=== PATIENT | male | born 1955 | race Caucasian/White ===

== ENCOUNTER 2017-01-09 10:44 | Inpatient (IN) | payer MEDICARE ==
[2017-01-09 13:30] LABS: Troponin I 0.085 ng/mL (< 0.028)
--- NOTE | 2017-01-09 13:43 | CT ---
CTA OF THE CHEST WITH CONTRAST 01/09/17 COMPARISON: None. HISTORY: Dyspnea. TECHNIQUE: Multiple contiguous axial images were obtained in a CTA of the chest with contrast per pulmonary emb olism protocol. 3D oblique MIP reformats and direct coronal reformats were performed. FINDINGS: The pulmonary arteries are well opacified without filling defects to suggest pulmonary emboli. The h eart is normal in size without focal cardiac abnormality. Calcifications are seen in the coronary ar teries and aorta. No hilar or mediastinal lymphadenopathy are seen. No focal infiltrates or masses are seen in the lungs. No pneumothorax or pleural effusion are seen. The visualized subdiaphragmatic structures are unremarkable. The chest wall soft tissues are unremar kable. IMPRESSION: No evidence of pulmonary thromboembolism. POS: [facility]
--- NOTE | 2017-01-09 14:03 | ULT ---
LEFT LOWER EXTREMITY VENOUS DUPLEX ULTRASOUND INCLUDING COLOR AND SPECTRAL DOPPLER IMAGING 01/09/17 HISTORY: 61-year-old male with left lower leg edema and redness and pain. Exam performed from groin to ankle including visualized greater saphenous, common femoral, superfici al femoral, profunda femoral, popliteal, trifurcation, and posterior tibial vein regions. There is p hasic flow at all levels with normal compressibility and normal augmentation. No intraluminal thromb us. IMPRESSION: No evidence for deep venous thrombosis. POS: DIGNA
[2017-01-09 14:38] VITALS: BMI 40.0
[2017-01-09] MEDS ORDERED: Enoxaparin Sodium 40 MG/0.4 ML SYRINGE SC SCH (14:45)
[2017-01-09] MEDS ORDERED: Acetaminophen 325 MG TAB PO PRN (14:45)
[2017-01-09] MEDS ORDERED: Vancomycin HCl 1.25 GM in Sodium Chloride 0.9% 250 ML 250 ML IVPB SCH (15:00)
[2017-01-09] MEDS ORDERED: AMOXicillin 250 MG CAP PO SCH (15:00)
[2017-01-09 15:29] LABS: Lactic Acid - Sepsis 1.2 mmol/L (0.5-2.2)
[2017-01-09 15:31] LABS: Anion Gap 13 mmol/L (10-20); BUN (Urea Nitrogen) 21 mg/dL (8.4-25.7); Calc. Creatinine Clearance 86 mL/min (70-130); Calcium 9.7 mg/dL (7.8-10.44); Carbon Dioxide 25 mmol/L (23-31); Chloride 104 mmol/L (98-107); Estimated GFR-MDRD 43
[2017-01-09] MEDS ORDERED: ISOVUE-370 76%-LOCM 1 ML ONE (15:55)
[2017-01-09] MEDS ORDERED: traMADol HCl 50 MG TAB PO PRN (18:05)
[2017-01-09] MEDS ORDERED: Sulfameth/Trimethoprim DS 800-160mg TAB PO SCH (21:00)
--- NOTE | 2017-01-10 00:44 | HP-2 ---
LOCATION: [facility] in [place], [place]. COSIGNER: Dr. Boni Aguilar. CODE STATUS: DNR. PRIMARY CARE PHYSICIAN: KENZIE - Dr. Perez. ATTENDING PHYSICIAN: Dr. Boni Aguilar. RESIDENT PHYSICIAN: Dr. Alexei Hudson. HISTORIAN: History provided by patient. CHIEF COMPLAINT: Left leg swelling, redness and mild shortness of breath. HISTORY OF PRESENT ILLNESS: A 61-year-old male with past medical history of prior CVA in 2006 with residual left-sided deficit and persistent left lower extremity edema, hypertension and hyperlipidemia, who presents with 1 day history of increased swelling, erythema and tenderness of the left lower extremity. Per patient, he states that the redness went up to the mid thigh as of this morning, but subsequently subsided to below the left knee. Patient reports chronic swelling in the left lower extremity since he had his stroke in 2006, as well as occasional \\\\"twitches\\\\" of the left lower extremity, but states that the twitching has been occurring more frequently since yesterday. The patient does not directly admit shortness of breath; however, his employee in the room with him mentioned it; he said he has been a little short of breath , but feels that is unchanged from baseline. ER COURSE: In the ER, the patient was given 81 mg of aspirin, 100 mg of Lovenox and 5 mg of Lopressor. PAST MEDICAL HISTORY: Hypertension, hyperlipidemia and CVA in 2006. PAST SURGICAL HISTORY: Right ankle surgery, unknown type; left ankle surgery, unknown type. ALLERGIES: No known drug allergies. MEDICATIONS: 1. Aspirin 81 mg per day. 2. Crestor, unknown dose. 3. Lisinopril 20 mg per day. 4. Lasix 40 mg daily. 5. Potassium, unknown dose. 6. Fenofibrate unknown dose. 7. Vitamin D, unknown dose. FAMILY HISTORY: Paternal history of prostate cancer. Maternal history of diabetes. SOCIAL HISTORY: Nonsmoker. Social drinker. Denies drugs. REVIEW OF SYSTEMS: GENERAL: Patient complains of feeling chilled and a subjective fever of 99 degrees. EYES: Denies vision changes or eye pain. ENT: Denies nasal congestion, rhinorrhea or sore throat. RESPIRATORY: Denies cough, congestion, shortness of breath or exercise intolerance. CARDIOVASCULAR: Denies chest pain, palpitations or orthopnea. Complains of edema. GASTROINTESTINAL: Denies nausea, vomiting, diarrhea, constipation or abdominal pain. GENITOURINARY: Denies incontinence or dysuria. SKIN: Complains of redness over the left lower extremity from ankle to below the left knee. Denies itching. MUSCULOSKELETAL: Complains of pain, tenderness and swelling of left lower extremity. Denies stiffness, arthritis or arthralgias. NEUROLOGIC: Denies weakness, numbness or syncope. PSYCHIATRIC: Denies anxiety or depression. PHYSICAL EXAMINATION: VITAL SIGNS: In the ED, patient's blood pressure is 131/80, pulse is 86, respiratory rate 22, T-max 98.7 and pulse ox 95% on room air. Current weight 125 kilograms. GENERAL: Alert and oriented in no acute distress, well-developed, obese and appropriately interactive. EYES: Pupils are equal, round and reactive to light with accommodation. Extraocular muscles are intact. Conjunctivae within normal limits. ENT: Oropharynx within normal limits. NECK: Supple, without lymphadenopathy, no thyromegaly. CARDIOVASCULAR: Regular rate and rhythm, 2/6 systolic ejection murmur, no gallops. Radial pulses 2+. Pedal pulse 2+. RESPIRATORY: Normal effort, no retractions. Lungs are clear to auscultation bilaterally. SKIN: Warm and dry. No cyanosis. There is an erythema with associated warmth over the left lower extremity extending from the ankle inferior to the left knee. ABDOMEN: Soft and nontender. Normoactive bowel sounds. No masses, distention or organomegaly. EXTREMITIES: No clubbing or cyanosis. 3+ pitting edema on the left lower extremity only. No edema on the right lower extremity. The left lower extremity is tender to palpation. MUSCULOSKELETAL: Structure is within normal limits. Tone within normal limits. A 4/5 strength in the left lower extremity. Normal strength of the right lower extremity. This is unchanged from his baseline and residual deficit from his prior stroke. NEUROLOGIC: Residual weakness of the left lower extremity, otherwise sensation intact. DTRs 2+/4 bilaterally. GCS 15. PSYCHIATRIC: Appropriate. LABORATORY RESULTS: White blood cells 8.8, hemoglobin 16.7, hematocrit 51 and platelets 211. BUN 21 and creatinine 1.57. D-dimer 0.39. First troponin 0.103 , then subsequent troponin 0.09. CK-MB is 2.5. EKG showed a right bundle branch block, but normal sinus rhythm rate 91. X-RAY FINDINGS: Chest x-ray showed no acute cardiothoracic process. IMAGING DATA: Left lower extremity ultrasound venous Doppler showed no DVT and normal study. CTA of the chest showed no evidence of pulmonary embolism and otherwise normal exam. ASSESSMENT AND PLAN: 1. Cellulitis of left lower extremity versus stasis dermatitis. The patient has no white count. He is afebrile; however, we will cover with antibiotics. Admit to telemetry for observation. We will erwin the margins of the erythema and continue to monitor for worsening signs or symptoms of infection. Repeat an a.m. CBC. 2. Hypertension. Resume home medications, heart healthy diet. 3. Hyperlipidemia. Resume home medications. 4. Prophylaxis. Patient will be started on Lovenox 40 mg daily and Protonix p.o. for deep venous thrombosis and gastrointestinal prophylaxis respectively. DISPOSITION AND LENGTH OF THE HOSPITAL STAY: Less than or equal to 1 day. Patient is stable. Symptomatic medications will be provided. History and physical exam as well as management discussed with Dr. Boni Aguilar, who agrees with the above history, physical exam, assessment and plan unless otherwise noted in his addendum. Patient was seen on rounds with Dr. Hudson. I agree with chen portions of history , PE, and plan above with the following addendum. The patient scratched his leg last week and noticed redness, pain and swelling 2 days later. He is otherwise stable. Unfortunately, he had an indeterminate troponin I in outside ED prompting his admission. We do not think the troponins are significant, but will trend them and the ECG. He denies chest pain or shortness of breath. TRAVIS Aguilar MD [facility]
[2017-01-10] MEDS ORDERED: Vancomycin HCl 1 GM in Premix Bag 1 BAG IVPB SCH (03:00)
[2017-01-10 06:09] LABS: #Basophils 0.1 thou/uL (0.0-0.2); #Eosinphils 0.3 thou/uL (0.0-0.7); #Lymphocytes 2.4 thou/uL (1.20-3.40); #Monocytes 1.1 thou/uL (0.11-0.59); #Neutrophils 4.4 thou/uL (1.40-6.50); %Basophils 0.8 % (0.0-1.0); %Eosinophils 3.3 % (0.0-10.0); %Lymphocytes 28.7 % (21.0-51.0); %Monocytes 13.4 % (0.0-10.0); Hematocrit 46.7 % (42.0-52.0); Mean Platelet Volume 6.1 fL (7.4-10.4); Red Blood Cell (RBC) Count 4.95 mill/uL (4.70-6.10); White Blood Cell (WBC) Count 8.2 thou/uL (4.8-10.8)
[2017-01-10 06:31] LABS: Anion Gap 13 mmol/L (10-20); BUN (Urea Nitrogen) 19 mg/dL (8.4-25.7); Calc. Creatinine Clearance 90 mL/min (70-130); Calcium 9.1 mg/dL (7.8-10.44); Carbon Dioxide 24 mmol/L (23-31); Chloride 104 mmol/L (98-107); Estimated GFR-MDRD 44
[2017-01-10 07:30] LABS: Troponin I 0.073 ng/mL (< 0.028)
--- NOTE | 2017-01-10 07:59 | PDOC.FM ---
- Subjective Subjective: No acute events overnight. Pt reports the pain in his leg and the erythema have subsided. Denies CP, SOB, NVDC. - Objective Vital Signs & Weight: Vital Signs (12 hours) Temp Pulse Resp BP Pulse Ox 01/10/17 04:00 98.4 F 90 18 140/86 94 L 01/09/17 20:00 99.3 F 111 H 18 134/86 95 Weight Weight 133.356 kg I&O: 01/09/17 01/10/17 01/11/17 06:59 06:59 06:59 Intake Total 1540 Output Total 980 Balance 560 Result Diagrams: 01/10/17 05:38 01/10/17 05:38 <Alexei Hudson - Last Filed: 01/10/17 07:57> - Objective Vital Signs & Weight: Vital Signs (12 hours) Temp Pulse Resp BP Pulse Ox 01/10/17 09:00 98.0 F 92 18 144/67 H 98 01/10/17 04:00 98.4 F 90 18 140/86 94 L Weight Weight 294 lb I&O: 01/09/17 01/10/17 01/11/17 06:59 06:59 06:59 Intake Total 1540 Output Total 980 Balance 560 Result Diagrams: 01/10/17 05:38 01/10/17 05:38 <Boni Aguilar - Last Filed: 01/10/17 10:34> Phys Exam - Physical Examination Constitutional: NAD HEENT: PERRLA, moist MMs Neck: no nodes, no JVD Respiratory: no wheezing, no rales, no rhonchi, clear to auscultation bilateral Cardiovascular: RRR, no rub 2/6 KELLIE Gastrointestinal: soft, non-tender, no distention, positive bowel sounds Musculoskeletal: no edema, pulses present Neurological: non-focal, normal sensation, moves all 4 limbs Deviation from normal: erythema over LLE, improved from yesterday <Alexei Hudson - Last Filed: 01/10/17 07:57> Dx/Plan (1) Cellulitis of left anterior lower leg Code(s): L03.116 - CELLULITIS OF LEFT LOWER LIMB Status: Acute (2) Elevated troponin I level Code(s): R74.8 - ABNORMAL LEVELS OF OTHER SERUM ENZYMES Status: Acute (3) Hypertension Code(s): I10 - ESSENTIAL (PRIMARY) HYPERTENSION Status: Acute (4) Hyperlipidemia Code(s): E78.5 - HYPERLIPIDEMIA, UNSPECIFIED Status: Acute - Plan Plan: Pt likely can be transitioned to oral abx and f/u op no white count, no fever elevated troponins trending down, consider op stress. Per pt, Pt had recent echo which showed . home meds for HTN, HLD Lovenox and Protonix for dvt/gi ppx <Alexei Hudson - Last Filed: 01/10/17 07:57> Attending Addendum - Attending Addendum I personally evaluated the patient and discussed the management with Dr. Hudson I agree with the History, Examination, Assessment and Plan documented above with any addition or exceptions noted below. Patient seen on rounds. His leg looks much better. He is stable for discharge. Troponins are stable overnight in the low indeterminate range. I think this is his baseline. No evidence of [place]. Home today on Bactrim. <Boni Aguilar - Last Filed: 01/10/17 10:34>
[2017-01-10] MEDS ORDERED: PYRIDOXINE PO SCH (09:00)
[2017-01-10] MEDS ORDERED: Lisinopril 20 MG TAB PO SCH (09:00)
[2017-01-10] MEDS ORDERED: Furosemide 40 MG TAB PO SCH (09:00)
[2017-01-10] MEDS ORDERED: Enoxaparin Sodium 40 MG/0.4 ML SYRINGE SC SCH (09:00)
[2017-01-10] MEDS ORDERED: LEVOMEFOLATE CALCIUM PO SCH (09:00)
[2017-01-10] MEDS ORDERED: CYANOCOBALAMIN PO SCH (09:00)
[2017-01-10] MEDS ORDERED: Sodium Chloride 0.9% 10 ML ONE (09:54)
[2017-01-10 13:41] VITALS: BP 137/65; TEMP 98.2
[2017-01-10] MEDS ORDERED: AMOXicillin 250 MG CAP PO SCH (15:00)
[2017-01-10] MEDS ORDERED: Sulfameth/Trimethoprim DS 800-160mg TAB PO SCH (21:00)
--- NOTE | 2017-01-11 14:14 | DIS-2 ---
DATE OF ADMISSION: 01/09/2017 DATE OF DISCHARGE: 01/10/2017 LOCATION: [facility] in [place], [place]. DATE OF SERVICE: 01/10/2017 COSIGNER: Dr. Boni Aguilar. RESIDENT PHYSICIAN: Dr. Alexei Hudson. ADMITTING ATTENDING: Dr. Boni Aguilar. DISCHARGE ATTENDING: Dr. Boni Aguilar. CONSULTS: None. PROCEDURES: 1. Vascular ultrasound of the left lower extremity done on 01/09/2017 showed no evidence for DVT. 2. CTA done on 01/09/2017 showed no evidence for pulmonary thromboembolism. PRIMARY DIAGNOSIS: Cellulitis. SECONDARY DIAGNOSES: 1. Elevated troponin. 2. Hypertension. 3. Hyperlipidemia. DISCHARGE MEDICATIONS: 1. Amoxicillin 250 mg t.i.d. 2. Bactrim-DS 1 tab p.o. b.i.d. 3. Aspirin 325 mg daily. 4. B12 4000 mcg p.o. daily. 5. Nexium 1 tab p.o. daily. 6. Fenofibrate 1 capsule p.o. daily. 7. Furosemide 40 mg p.o. daily. 8. Lisinopril 20 mg daily. 9. Potassium chloride 20 mEq daily. 10. Rosuvastatin 20 mg daily. DISCONTINUED MEDICATIONS: None. HISTORY OF PRESENT ILLNESS AND HOSPITAL COURSE: The patient is a 61-year-old male with a previous history of a CVA in 2006, which left him with some residual right-sided deficit and chronic left lower extremity edema. He came in with a 1-day history of worsening left lower extremity edema and erythema, which he states was up to his mid thigh, but subsequently subsided to below the left knee. He was transferred to [facility] after being transferred from the [facility] ER for concern of a left lower extremity DVT/PE. Once at [facility], the patient underwent testing to search for possible DVT, which was negative as well as a negative workup for pulmonary embolism. The patient's blood pressure on arrival was 147/80, 137/65 on discharge. The patient's pulse was 95 on arrival and 83 upon discharge. Other vitals, respiratory rate between 18 and 22 breaths per minute, his oxygen saturation was 94% to 98% on room air with the lowest saturation occurring while the patient was asleep. The patient had no chest pain, no shortness of breath. His only complaint was the erythematous, painful and edematous to the left lower extremity. He was admitted and started on IV antibiotics, vancomycin and Zosyn and treated for 1 day on IV and then switched to p.o. Bactrim and amoxicillin on the day of discharge. Throughout the patient's hospital stay, the erythema and edema greatly improved and the patient was switched from IV to p.o. medication upon discharge. Of note, the patient's troponins on arrival were 0.090 at the outside ER and subsequently trended down to 0.085 and 0.073, although he had no EKG changes and no complaints concerning for an ACS. Importantly, the patient's creatinine on arrival was 1.62 and 1.59 upon discharge. His estimated GFR was 43. There is blood cultures were drawn and there is no growth to date. DISPOSITION: The patient left the hospital in stable condition. DISCHARGE INSTRUCTIONS: 1. Location: Home. 2. Diet: Heart healthy. No salt added diet. 3. Activity: As tolerated. 4. Followup: Follow up with the primary care provider within 1 week following discharge. MYRNA
== END 2017-01-10 13:31 | disposition home or self-care (01) | DRG 603 ==
LOC: ERS 10:44 → 2NO 14:04
PROVIDERS: ADMIT Internal Medicine; ATTEND Internal Medicine
DX: L03.116 Cellulitis of left lower limb (principal); N17.9 Acute kidney failure, unspecified; I69.954 Hemiplegia and hemiparesis following unspecified cerebrovascular disease affecting left non-dominant side; I10 Essential (primary) hypertension; E78.5 Hyperlipidemia, unspecified; Z79.82 Long term (current) use of aspirin; I35.0 Nonrheumatic aortic (valve) stenosis; R74.8 Abnormal levels of other serum enzymes
CPT/HCPCS: 36415; 71275; 80048; 83605; 84484; 85025; 87040; 93005; A4216; J1650; J3370; J7050

== ENCOUNTER 2017-05-15 10:11 | Emergency (ER) | payer MEDICARE ==
[2017-05-15 10:40] LABS: #Basophils 0.1 thou/uL (0.0-0.2); #Eosinphils 0.2 thou/uL (0.0-0.7); #Lymphocytes 1.9 thou/uL (1.20-3.40); #Monocytes 0.6 thou/uL (0.11-0.59); %Basophils 1.1 % (0.0-1.0); %Eosinophils 3.3 % (0.0-10.0); %Lymphocytes 27.9 % (21.0-51.0); %Monocytes 8.3 % (0.0-10.0); %Neutrophils 59.4 % (42.0-75.0); Hemoglobin 16.4 g/dL (14.0-18.0); Mean Corpuscular HGB CONC 32.7 g/dL (32.0-36.0); Mean Corpuscular Volume 88.6 fl (80.0-94.0); Mean Platelet Volume 6.3 fL (7.4-10.4); Platelet Count 222 thou/uL (130-400); RBC Distribution Width 16.4 % (11.5-14.5); Red Blood Cell (RBC) Count 5.65 mill/uL (4.70-6.10); White Blood Cell (WBC) Count 6.7 thou/uL (4.8-10.8)
[2017-05-15 11:07] LABS: ALT (SGPT) 42 U/L (8-55); AST (SGOT) 34 U/L (5-34); Alkaline Phosphatase 49 U/L (40-150); Anion Gap 16 mmol/L (10-20); BUN (Urea Nitrogen) 17 mg/dL (8.4-25.7); Bilirubin, Total 0.5 mg/dL (0.2-1.2); Calc. Creatinine Clearance 0 mL/min (70-130); Calcium 9.4 mg/dL (7.8-10.44); Carbon Dioxide 22 mmol/L (23-31); Chloride 105 mmol/L (98-107); Estimated GFR-MDRD 61; Globulin 3.2 g/dL (2.4-3.5); Glucose 125 mg/dL (80-115); Potassium 4.8 mmol/L (3.5-5.1); Protein, Total 7.2 g/dL (5.8-8.1); Sodium 138 mmol/L (136-145); Troponin I Less than 0.010 ng/mL (< 0.028)
[2017-05-15] MEDS ORDERED: Clindamycin/D5W 600 mg/50 ml Premix Bag ONE (11:50)
--- NOTE | 2017-05-15 15:08 | ULT ---
LEFT LOWER EXTREMITY VENOUS DUPLEX ULTRASOUND INCLUDING COLOR AND SPECTRAL DOPPLER IMAGING: HISTORY: Left foot infection for 2 months. Left leg swelling, redness, and pain last week. COMPARISON: 01/09/17. FINDINGS: Exam performed from groin to ankle including visualized greater saphenous, common femoral, superficia l femoral, profunda femoral, popliteal, trifurcation, and posterior tibial vein regions. Exam includ es color and spectral Doppler imaging. There was phasic flow at all levels. Normal compressibility and normal augmentation. No intralumina l thrombus. IMPRESSION: No evidence for deep venous thrombosis. Stable from prior study. POS: [facility]
--- NOTE | 2017-06-24 15:04 | EKG ---
Test Reason : Blood Pressure : / mmHG Vent. Rate : 090 BPM Atrial Rate : 090 BPM P-R Int : 124 ms QRS Dur : 134 ms QT Int : 376 ms P-R-T Axes : 060 -40 -04 degrees QTc Int : 459 ms Normal sinus rhythm Left axis deviation Right bundle branch block Abnormal ECG Confirmed by ERIC LLAMAS ([id number]), deputy editor in chief ERIC MERIDA ([id number] on 06/24/2017 3:03:38 PM Referred By: Confirmed By:ERIC LLAMAS
== END 2017-05-15 12:12 | disposition home or self-care (01) ==
LOC: ERS 10:11
DX: L03.116 Cellulitis of left lower limb (principal); I10 Essential (primary) hypertension; Z86.73 Personal history of transient ischemic attack (TIA), and cerebral infarction without residual deficits
CPT/HCPCS: 80053; 82553; 83880; 84484; 85025; 93005; 96365; J3490

== ENCOUNTER 2017-12-22 16:18 | Inpatient (IN) | payer MEDICARE ==
[2017-12-22 17:34] LABS: #Basophils 0.1 thou/uL (0.0-0.2); #Eosinphils 0.3 thou/uL (0.0-0.7); #Lymphocytes 2.5 thou/uL (1.20-3.40); #Monocytes 0.9 thou/uL (0.11-0.59); #Neutrophils 6.5 thou/uL (1.40-6.50); %Basophils 0.8 % (0.0-1.0); %Eosinophils 2.6 % (0.0-10.0); %Lymphocytes 24.6 % (21.0-51.0); %Monocytes 8.6 % (0.0-10.0); %Neutrophils 63.5 % (42.0-75.0); Hemoglobin 14.3 g/dL (14.0-18.0); Mean Corpuscular HGB CONC 32.3 g/dL (32.0-36.0); Mean Corpuscular Hemoglobin 29.3 pg (27.0-31.0); Mean Corpuscular Volume 90.6 fL (78.0-98.0); Mean Platelet Volume 6.1 fL (7.4-10.4); Platelet Count 338 thou/uL (130-400); RBC Distribution Width 13.2 % (11.5-14.5); Red Blood Cell (RBC) Count 4.89 mill/uL (4.70-6.10); White Blood Cell (WBC) Count 10.3 thou/uL (4.8-10.8)
[2017-12-22 17:36] LABS: Prothrombin Time 13.1 SEC (12.0-14.7)
[2017-12-22 17:37] LABS: PTT 28.8 SEC (22.9-36.1)
[2017-12-22 17:59] LABS: ALT (SGPT) 41 U/L (8-55); AST (SGOT) 45 U/L (5-34); Albumin 4.5 g/dL (3.4-4.8); Alkaline Phosphatase 46 U/L (40-150); Anion Gap 12 mmol/L (10-20); BUN (Urea Nitrogen) 27 mg/dL (8.4-25.7); Bilirubin, Total 0.2 mg/dL (0.2-1.2); CK (CPK) 302 U/L (30-200); Calc. Creatinine Clearance 0 mL/min (70-130); Calcium 9.9 mg/dL (7.8-10.44); Carbon Dioxide 26 mmol/L (23-31); Chloride 98 mmol/L (98-107); Estimated GFR-MDRD 48; Globulin 2.9 g/dL (2.4-3.5); Glucose 172 mg/dL (80-115); Lipase 29 U/L (8-78); Potassium 4.4 mmol/L (3.5-5.1); Protein, Total 7.4 g/dL (5.8-8.1); Sodium 132 mmol/L (136-145)
[2017-12-22 18:22] LABS: CKMB 14.2 ng/mL (0-6.6); Troponin I 2.108 ng/mL (< 0.028)
--- NOTE | 2017-12-22 18:29 | RAD ---
SINGLE VIEW OF THE CHEST: 12/22/17 COMPARISON: 02/19/17 HISTORY: Chest pain. FINDINGS: Single view of the chest shows a normal sized cardiomediastinal silhouette. There is no evidence of c onsolidation, mass, or pleural effusion. The bones are unremarkable. IMPRESSION: No evidence of acute cardiopulmonary disease. POS: [facility]
[2017-12-22] MEDS ORDERED: Enoxaparin Sodium 30 MG/0.3 ML SYRINGE ONE ×2 (19:26→19:27)
[2017-12-22] MEDS ORDERED: Enoxaparin Sodium 100 MG/ML SYRINGE ONE (19:26)
[2017-12-22] MEDS ORDERED: Ondansetron PF 4 MG/2 ML Vial IVP PRN ×2 (20:35→22:33)
[2017-12-22] MEDS ORDERED: Ondansetron ODT 4 MG TAB SL PRN (20:35)
[2017-12-22] MEDS ORDERED: Sodium Chloride 0.9% 1,000 ML IV SCH (20:35)
[2017-12-22 21:27] LABS: Troponin I 2.835 ng/mL (< 0.028)
[2017-12-22 21:37] VITALS: BMI 42.3
[2017-12-22] MEDS ORDERED: Acetaminophen 325 MG TAB PO PRN (22:33)
[2017-12-22] MEDS ORDERED: traMADol HCl 50 MG TAB PO PRN (22:36)
--- NOTE | 2017-12-22 23:13 | PDOC.EVN ---
Event Note - Event Note Event Note: advanced care planning participants: pt, pt's at bedside, pt's bedside nurse dx: NSTEMI Summary Pt presented with a non-POLST signed document that appears to have been created at home which states that it is a request for DNR status. Discussed with patient and his (who would be his medical decision maker if he is unable to make his own) his wishes. At this point in time, he would like to pursue aggressive and curative (if possible) medical treatment. However, if this fails and he has cardiopulmonary arrest, he does not wish to undergo CPR/ intubation as part of the resuscitative process. Pt is ordered a code status of DNR, DNI Greater than 16 min spent
[2017-12-22 23:49] LABS: Troponin I 3.806 ng/mL (< 0.028)
--- NOTE | 2017-12-22 23:57 | HP ---
PRIMARY CARE PHYSICIAN: Bouchra Perez M.D. CHIEF COMPLAINT: Chest pain. HISTORY OF PRESENT ILLNESS: This is a 62-year-old male with a known history of obesity, prior CVA, w ho presents with a chief complaint of truly atypical chest pain. He describes it more of a radiating discomfort from his back down to his bilateral arms. Patient has a known history of chronic back pa in and prior history of cerebrovascular accident with left-sided weakness. Patient states that appro ximately 2 weeks ago, he started having increased fatigability, particularly with exertion also that he had had a change in his back pain that involved radiation down bilateral arms, which is new for mt m. He denies any overt chest discomfort, nausea, vomiting. Endorses shortness of breath with exerti on, better with rest. He also notes that his radiation down bilateral arms. Pain is improved with r est as well. Patient states that he was seen last Wednesday approximately 5 days prior and was told that he might nee d a heart catheterization. At that point in time, patient declined. As his pain and discomfort was not as severe as it is today. However, in the interval time, he has had increased frequency and juana rity of the pain and subsequent presentation to our facility. His is with him at bedside who co ncurs with his history. REVIEW OF SYSTEMS: As per HPI. Constitutional: No recent weight loss or gain easy fatigability as noted above. Cardiovascular: No overt chest pain or chest pressure. Does have a radiating arm pain bilaterally with some radiation to the front. No nausea, no vomiting. Respiratory: Some shortness of breath with episodes of discomfort, otherwise no cough, no congestion. No recent upper respirato ry infection. Gastrointestinal: No nausea, no vomiting, no abdominal pain, no issues with diarrhea or constipation. Genitourinary: No change in urinary frequency, quality, quantity, or odor. Muscul oskeletal: No change in his baseline strength. Denies any new myalgias or arthralgias. PAST MEDICAL AND SURGICAL HISTORY: As per HPI, includes the followin. Hypertension. 2. Hyperlipidemia. 3. CVA in 2006 with subsequent left-sided weakness, aortic stenosis diagnosed approximately 6 months ago, unclear severity by history. 4. Status post right ankle surgery. 5. Status post left ankle surgery. 6. Status post chronic back pain secondary to his CVA. 7. Obesity. HOME MEDICATIONS: Please see the EMR for full details. His current regimen seems to include: 1. Triamterene/hydrochlorothiazide 37.5/25 mg p.o. daily. 2. Fenofibrate 160 mg p.o. daily. 3. Tramadol 100 mg p.o. q.i.d. p.r.n. for pain 4. Rosuvastatin 1 tab p.o. daily. 5. Aspirin 325 mg p.o. daily. 6. Esomeprazole 1 tab p.o. b.i.d. 7. Lisinopril 1 tab p.o. daily. ALLERGIES: No known drug allergies. FAMILY HISTORY: Significant for diabetes and prostate cancer. SOCIAL HISTORY: No tobacco use, no illicit drug use, no alcohol use. Patient is . His is with him at bedside. Patient states he wishes to be a DO NOT RESUSCITATE, DO NOT INTUBATE if aggr essive medical treatment fails. However, he would like to pursue aggressive medical treatment. PHYSICAL EXAMINATION: GENERAL: The patient is awake, alert, conversant, in no acute distress, seated on the commode. HEENT: Normocephalic, atraumatic. Equal ocular motions are intact, moist mucous membranes. CARDIOVASCULAR: S1, S2. Systolic ejection murmur appreciated throughout the left sternal border. N o carotid bruits. EXTREMITIES: Pulses 2+ bilateral upper extremities, 1+ bilateral left lower extremity edema. Trace pitting pedal edema of the right. Patient states that this is his baseline. RESPIRATORY: Reasonable air movement. No wheezes, rales, or rhonchi. Grossly clear to auscultation . ABDOMEN: Large and protuberant. Positive bowel sounds, soft, nontender to palpation. MUSCULOSKELETAL: He is moving his right upper and lower extremity without overt difficulty. LABORATORY DATA AND IMAGING: WBC 10.3, hemoglobin 14.3, hematocrit 44.3, platelets 338. PT 13.1, IN R 1.0. Sodium 132, potassium 4.4, chloride 98, bicarbonate 26, BUN 27, creatinine 1.48, glucose 172, calcium 9.9. Total bilirubin 0.2, AST 45, ALT 41, alkaline phosphatase 46. Creatine kinase 302, tr oponin initial 2.108 followed by 2.835. BNP natriuretic peptide 201.6, total protein 7.4, albumin 4. 5, lipase of 29. ASSESSMENT AND PLAN: A 62-year-old male presenting with atypical chest pain. 1. Atypical chest pain in terms of location and characteristic accompanied by reproducible and exert ional shortness of breath and fatigue. Concern for the cardiac etiology and probable non-ST elevatio n myocardial infarction. Patient has been given Lovenox full anticoagulation dose. I appreciate Car diology consultation. We will trend with serial troponins. Aspirin, lisinopril, rosuvastatin, and c lose monitoring of hemodynamics. To consider addition of the beta teresa if blood pressure is able to tolerate. Patient currently is free from his chest pain equivalent. Maintain on telemetry. Rech matthew EKG in the morning. To consider an echocardiogram if no catheterization is pursued. 2. Known history of aortic stenosis. Patient states that he is told it is "okay and needs only to b e monitored" 3. Hypertension, stable. Continue home regimen and close monitoring as noted above. 4. Hyperlipidemia. Continue the patient on his home rosuvastatin. 5. Question of an aneurysm. Patient states that he was told at some point, he has aneurysm. I disc ussed with the patient that blood pressure control will be chen in helping to manage this along with l ongitudinal followup. Patient and his expressed understanding. 6. Diet: N.p.o. after midnight; otherwise, cardiac diet. 7. Activity: As tolerated. 8. Deep venous thrombosis prophylaxis with sequentials. Patient is already on full dose anticoagula tion with Lovenox. Patient is admitted to the [facility]. Patient is DNR/DNI as discussed above. This was discussed with the patient and his at bedside nursing.
[2017-12-23] MEDS: Nitroglycerin 0.4 MG TAB (25 Tab Bottle) SL PRN ×6 (01:28→23:43)
[2017-12-23 04:17] LABS: Anion Gap 15 mmol/L (10-20); BUN (Urea Nitrogen) 26 mg/dL (8.4-25.7); Calc. Creatinine Clearance 111 mL/min (70-130); Calcium 9.6 mg/dL (7.8-10.44); Carbon Dioxide 23 mmol/L (23-31); Cardiac Risk 5.9 (Less than 4.5); Chloride 101 mmol/L (98-107); Cholesterol 189 mg/dl (< 200 Desired); Estimated GFR-MDRD 55; Glucose 202 mg/dL (80-115); HDL Cholesterol 32 mg/dL (>60 Neg Risk); Potassium 4.3 mmol/L (3.5-5.1); Sodium 135 mmol/L (136-145); Triglycerides 448 mg/dL (Less than 150)
[2017-12-23 04:44] LABS: #Basophils 0.1 thou/uL (0.0-0.2); #Eosinphils 0.3 thou/uL (0.0-0.7); #Lymphocytes 2.2 thou/uL (1.20-3.40); #Monocytes 0.9 thou/uL (0.11-0.59); #Neutrophils 5.5 thou/uL (1.40-6.50); %Eosinophils 3.2 % (0.0-10.0); %Lymphocytes 24.6 % (21.0-51.0); %Monocytes 10.3 % (0.0-10.0); %Neutrophils 60.8 % (42.0-75.0); Hemoglobin 13.3 g/dL (14.0-18.0); Mean Corpuscular HGB CONC 32.8 g/dL (32.0-36.0); Mean Corpuscular Hemoglobin 29.8 pg (27.0-31.0); Mean Corpuscular Volume 90.8 fL (78.0-98.0); Mean Platelet Volume 6.2 fL (7.4-10.4); Platelet Count 310 thou/uL (130-400); RBC Distribution Width 13.1 % (11.5-14.5); Red Blood Cell (RBC) Count 4.46 mill/uL (4.70-6.10); White Blood Cell (WBC) Count 9.1 thou/uL (4.8-10.8)
[2017-12-23] MEDS: Morphine 2 MG/ML SYRINGE SLOW IVP PRN ×8 (05:13→23:20)
[2017-12-23] MEDS ORDERED: Eucerin (Mineral Oil/Petrolatum,White) 30 gm Jar TOP PRN (08:05)
[2017-12-23] MEDS ORDERED: Ondansetron PF 4 MG/2 ML Vial IVP PRN (08:05)
[2017-12-23] MEDS ORDERED: Diabetic Tussin 200 MG/10 ML UDCUP PO PRN (08:05)
[2017-12-23] MEDS ORDERED: Loratadine 10 MG TAB PO PRN (08:05)
[2017-12-23] MEDS ORDERED: Ondansetron ODT 4 MG TAB PO PRN (08:05)
[2017-12-23] MEDS ORDERED: hydrALAZINE 20 MG/ML VIAL SLOW IVP PRN (08:05)
[2017-12-23] MEDS ORDERED: cloNIDine 0.1 MG TAB PO PRN (08:05)
[2017-12-23] MEDS ORDERED: Calcium Carbonate 500 MG ChewTAB PO PRN (08:05)
[2017-12-23] MEDS ORDERED: Zolpidem Tartrate 5 MG TAB PO PRN (08:05)
[2017-12-23] MEDS ORDERED: Bisacodyl 5 MG TAB PO PRN (08:05)
[2017-12-23] MEDS ORDERED: Sodium Chloride 0.65% Nasal 44 ML BOT EA NARE PRN (08:05)
[2017-12-23] MEDS ORDERED: Senokot S 8.6-50 MG TAB PO PRN (08:05)
[2017-12-23] MEDS ORDERED: Acetaminophen 500 MG TAB PO PRN (08:05)
[2017-12-23] MEDS ORDERED: Artificial Tear Sol 15 ML BOT EA EYE PRN (08:05)
[2017-12-23] MEDS ORDERED: Loperamide HCl 2 MG CAP PO PRN (08:05)
[2017-12-23] MEDS ORDERED: Lisinopril 2.5 MG TAB PO SCH (09:00)
--- NOTE | 2017-12-23 09:51 | CON ---
DATE OF CONSULTATION: 12/23/2017 HISTORY OF PRESENT ILLNESS: He is a 62-year-old morbidly obese gentleman who presented to the ER wit h a week and a half history of off and on back pain between the shoulder radiating to both upper extr emities and some vague anterior chest pain, but no shortness of breath, no coughing or wheezing. He has had a CVA many years ago, which has residual left-sided weakness though he does walk with the he lp of a walker. He has gained considerable weight. Presently, he is 135 kilograms. In the ER, his oxygen saturation is 100%, blood pressure was 127/83. His says he has had no ignacio or history of TB, pneumonia or bronchial asthma. PAST MEDICAL HISTORY: 1. CVA, left-sided residual weakness. 2. Hypertension. PAST SURGICAL HISTORY: Both ankles broken. 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 Tonsils, appendix. TOBACCO: Never. ALCOHOL: Occasional. MEDICATIONS: From home, lisinopril, calcium, triamterene, tramadol, Nexium, aspirin. ALLERGIES: None. 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 REVIEW OF SYSTEMS: A 10 point negative. PHYSICAL EXAMINATION: VITAL SIGNS: Sats are 97% on room air, respiration rate 18, temperature 97, blood pressure 120/70. GENERAL: He is morbidly obese. His Mallampati score is 2. CHEST: Decreased breath sounds, no wheezing. CARDIAC: Normal S1, S2, no gallops. ABDOMEN: Soft, no masses. LABORATORY DATA: Creatinine 1.3. Troponin is elevated at 3. BNP is 201 and his white count 9000, H &H is 13 and 40, platelet count 310. X-RAY FINDINGS: X-ray of the chest was normal. IMPRESSION: 1. Chest pain, rule out coronary artery disease. 2. Morbid obesity. 3. Cerebrovascular accident. 4. Probably sleep apnea. 5. Hypertension. 6. Renal failure. PLAN: Await input from Cardiology. Pulmonary will follow while in the MICU. Encouraged to lose jessica ght. Obviously, he has an outpatient sleep study if he has agreed to do so. This is a 70 minutes consultation in which 50% of time spent in direct patient care.
[2017-12-23] MEDS: Lisinopril 20 MG TAB PO SCH (10:02)
[2017-12-23] MEDS: Triamterene/Hydrochlorothiazide 37.5 mg/25 mg Tablet PO SCH (10:04)
[2017-12-23] MEDS: Fenofibrate Nanocrystallized 145 MG TAB PO SCH (10:04)
[2017-12-23] MEDS: Rosuvastatin 20 MG TAB PO SCH (10:04)
[2017-12-23] MEDS: Famotidine/PF 20 mg/2ml Vial SLOW IVP SCH ×2 (10:04→20:22)
[2017-12-23] MEDS: Aspirin 325 MG TAB PO SCH (10:04)
--- NOTE | 2017-12-23 10:54 | PDOC.PN ---
- Subjective Encounter Start Date: 12/23/17 Encounter Start Time: 08:40 -: old records requested/rev Patient seen and examined. No new complaints. No overnight events pt denies chest pain - Objective Resuscitation Status: Resuscitation Status DNR:Do Not Resuscitate MAR Reviewed: Yes Vital Signs & Weight: Vital Signs (12 hours) Temp Pulse Resp BP BP Pulse Ox 12/23/17 10:02 115/80 12/23/17 08:00 97 12/23/17 07:54 97.4 F L 92 18 120/75 97 12/23/17 04:21 97.3 F L 99 15 118/76 94 L 12/23/17 00:18 97.3 F L 101 H 14 121/82 95 Weight Weight 303 lb I&O: 12/22/17 12/23/17 12/24/17 06:59 06:59 06:59 Output Total 300 Balance -300 Result Diagrams: 12/23/17 03:40 12/23/17 03:40 Radiology Reviewed by me: Yes EKG Reviewed by me: Yes (nsr) Phys Exam - Physical Examination Constitutional: NAD HEENT: PERRLA, moist MMs, sclera anicteric Neck: no JVD, supple Respiratory: no wheezing, no rales, no rhonchi Cardiovascular: RRR, no significant murmur, no rub Gastrointestinal: soft, non-tender, no distention, positive bowel sounds morbid obesity Musculoskeletal: no edema, pulses present Neurological: non-focal Lymphatic: no nodes Psychiatric: normal affect, A&O x 3 Skin: no rash, normal turgor Dx/Plan (1) NSTEMI (non-ST elevated myocardial infarction) Code(s): I21.4 - NON-ST ELEVATION (NSTEMI) MYOCARDIAL INFARCTION Status: Acute (2) Morbid obesity with BMI of 40.0-44.9, adult Code(s): E66.01 - MORBID (SEVERE) OBESITY DUE TO EXCESS CALORIES; Z68.41 - BODY MASS INDEX (BMI) 40.0-44.9, ADULT Status: Acute (3) Hyperlipidemia Code(s): E78.5 - HYPERLIPIDEMIA, UNSPECIFIED Status: Acute (4) Hypertension Code(s): I10 - ESSENTIAL (PRIMARY) HYPERTENSION Status: Acute - Plan cont current plan of care, plan discussed w/ family * home medication reconciled * continue asprin, crestor, tricor * cardiology consulted * will get echo today * medication reviewed as below * symptomatic treatment * discussed with . Review of Systems - Review of Systems ENT: negative: Ear Pain, Ear Discharge, Nose Pain, Nose Discharge, Nose Congestion, Mouth Pain, Mouth Swelling, Throat Pain, Throat Swelling, Other Respiratory: negative: Cough, Dry, Shortness of Breath, Hemoptysis, SOB with Excertion, Pleuritic Pain, Sputum, Wheezing Cardiovascular: negative: chest pain, palpitations, orthopnea, paroxysmal nocturnal dyspnea, edema, light headedness, other Gastrointestinal: negative: Nausea, Vomiting, Abdominal Pain, Diarrhea, Constipation, Melena, Hematochezia, Other Genitourinary: negative: Dysuria, Frequency, Incontinence, Hematuria, Retention , Other Musculoskeletal: negative: Neck Pain, Shoulder Pain, Arm Pain, Back Pain, Hand Pain, Leg Pain, Foot Pain, Other Skin: negative: Rash, Lesions, Ze, Bruising, Other - Medications/Allergies Allergies/Adverse Reactions: Allergies Allergy/AdvReac Type Severity Reaction Status Date / Time No Known Allergies Allergy Verified 12/22/17 22:01 Medications: Current Medications Acetaminophen (Tylenol) 650 mg PO Q4H PRN PRN Reason: Headache/Fever/Mild Pain (1-3) Acetaminophen (Tylenol) 500 mg PO Q6H PRN PRN Reason: Mild Pain (1-3) Hydrocodone Bitart/Acetaminophen ([place] 5/325) 1 tab PO Q4H PRN PRN Reason: Moderate Pain (4-6) Artificial Tears (Tears Renewed 15ml Bottle) 2 drop EA EYE PRN PRN PRN Reason: Dry Eyes Aspirin (Aspirin) 325 mg PO DAILY [facility] Last Admin: 12/23/17 10:04 Dose: 325 mg Bisacodyl (Dulcolax) 10 mg PO DAILYPRN PRN PRN Reason: Constipation Calcium Carbonate (Tums) 1,000 mg PO Q4H PRN PRN Reason: Heartburn or Indigestion Clonidine (Catapres) 0.1 mg PO Q4H PRN PRN Reason: SBP > ____ Famotidine (Pepcid) 20 mg SLOW IVP Q12HR [facility] Last Admin: 12/23/17 10:04 Dose: 20 mg Fenofibrate (Tricor) 145 mg PO DAILY [facility] Last Admin: 12/23/17 10:04 Dose: Not Given Guaifenesin (Robitussin Sf) 200 mg PO Q4H PRN PRN Reason: Cough Hydralazine HCl (Apresoline) 10 mg SLOW IVP Q4H PRN PRN Reason: SBP > 180 and HR < 70 Lisinopril (Zestril) 20 mg PO DAILY [facility] Last Admin: 12/23/17 10:02 Dose: 20 mg Loperamide HCl (Imodium) 2 mg PO PRN PRN PRN Reason: Diarrhea/Loose Stools Loratadine (Claritin) 10 mg PO DAILYPRN PRN PRN Reason: Sinus Symptoms Mineral Oil/White Petrolatum (Eucerin Cream) 0 gm TOP BIDPRN PRN PRN Reason: Dry Skin Morphine Sulfate (Morphine) 2 mg SLOW IVP Q5MIN PRN PRN Reason: Chest Pain Last Admin: 12/23/17 05:13 Dose: 2 mg Nitroglycerin (Nitrostat) 0.4 mg SL Q5MIN PRN PRN Reason: Chest Pain Last Admin: 12/23/17 01:33 Dose: 0.4 mg Ondansetron HCl (Zofran) 4 mg IVP Q6H PRN PRN Reason: Nausea/Vomiting Ondansetron HCl (Zofran Odt) 4 mg PO Q6H PRN PRN Reason: Nausea/Vomiting Ondansetron HCl (Zofran) 4 mg IVP Q6H PRN PRN Reason: Nausea/Vomiting Rosuvastatin Calcium (Crestor) 20 mg PO DAILY [facility] Last Admin: 12/23/17 10:04 Dose: 20 mg Senna/Docusate Sodium (Senokot S) 2 tab PO BID PRN PRN Reason: Constipation Sodium Chloride ([place] 0.65%) 0 ml EA NARE QIDPRN PRN PRN Reason: Nasal Congestion Tramadol HCl (Ultram) 100 mg PO QIDPRN PRN PRN Reason: Moderate to Severe Pain (4-10) Triamterene/HCTZ (Maxzide-25) 1 tab PO DAILY [facility] Last Admin: 12/23/17 10:04 Dose: Not Given Zolpidem Tartrate (Ambien) 5 mg PO HSPRN PRN PRN Reason: Insomnia
[2017-12-23] MEDS ORDERED: Verapamil 5 MG/2 ML VIAL ONE (12:59)
[2017-12-23] MEDS ORDERED: Heparin 10,000 UNITS/1 ML VIAL ONE (12:59)
[2017-12-23] MEDS ORDERED: Lidocaine 1% (PF) 30 ML VIAL ONE (12:59)
[2017-12-23] MEDS ORDERED: Nitroglycerin 100MG/250ML BOT 250 ML ONE (12:59)
[2017-12-23] MEDS ORDERED: Midazolam HCl 2 mg/2 ml Vial ONE (13:33)
[2017-12-23] MEDS ORDERED: Fentanyl 100 MCG/2 ML VIAL ONE (13:33)
[2017-12-23] MEDS ORDERED: Aggrastat 12.5 MG/250 ML 250 ML ONE (13:52)
[2017-12-23] MEDS ORDERED: Sodium Chloride 0.9% 1,000 ML IV SCH (14:15)
[2017-12-23] MEDS ORDERED: Iopamidol 370 76% 100 ML VIAL ONE (14:51)
[2017-12-23] MEDS: Aggrastat 12.5 MG/250 ML 250 ML IVPB SCH ×2 (15:01→21:44)
--- NOTE | 2017-12-23 15:35 | CON ---
DATE OF CONSULTATION: 12/23/2017 REASON FOR CONSULTATION: Non-STEMI. HISTORY OF PRESENT ILLNESS: Mr. Gray is a very pleasant 62-year-old white gentleman who comes to [facility] for chest pain. He started having chest pain about a week ago. He was seen in the ER cl ose to his house. I think it is in [place] and he was told that his blood work showed that he was h aving an NC and he had recommendation to come into the hospital. He refused. He stated he was ready to and just decided to go home. He continued to have pain throughout the week. Pain worsened t o a point where he cannot even walk across the [place] and cannot even get out of the bed without having pain and moved onto bed and so decided to come again. He was told one of his friends that he could have a heart catheterization and maybe have a stent placed to get better. Here, his troponins were e levated. Cardiology is being consulted. He is pain free at rest, but any minimal movement causes hi m to have pain. PAST MEDICAL HISTORY: 1. Hypertension. 2. Hyperlipidemia. 3. History of cerebrovascular accident in the past in 2006 with left-sided weakness. 4. History of aortic stenosis of unknown severity. 5. Obesity. PAST SURGICAL HISTORY: 1. Left ankle surgery. 2. Right ankle surgery. OUTPATIENT MEDICATIONS: Include, 1. Triamterene/hydrochlorothiazide 37.5/25 daily. 2. Fenofibrate. 3. Tramadol 100 mg p.r.n. pain. 4. Rosuvastatin. 5. Aspirin 325 a day. 6. Esomeprazole. 7. Lisinopril. ALLERGIES: No known drug allergies. FAMILY HISTORY: Noncontributory. SOCIAL HISTORY: No alcohol, tobacco or drugs. He has DNR/DNI on file. However, he only wants to be DNR/DNI if he is hooked up to the machine for a long period of time and is unable to recover. He do es want to be a vegetable. REVIEW OF SYSTEMS: A 12-point review of systems is done and it is all negative except as stated in [facility] history and physical. PHYSICAL EXAMINATION: VITAL SIGNS: Temperature 97.3, pulse 99, respiratory rate 15, satting 94% on room air, blood pressur e 118/76. GENERAL: Awake, alert, oriented x3, in no distress. HEENT: Normocephalic, atraumatic. NECK: Supple. LUNGS: Clear. CARDIOVASCULAR: S1, S2, no S3, S4. There is a grade 3-6 systolic murmur at right upper sternal bord er. ABDOMEN: Soft, nontender, bowel sounds. Prominent abdomen. EXTREMITIES: 1+ edema. SKIN: Warm and dry. LABORATORY DATA: Laboratory work was reviewed. CBC was reviewed. Coags were reviewed. Chemistries were reviewed. Troponin is 2.1, 2.8 and 3.8. BNP of 201, creatinine of 1.3, GFR 55. Triglycerides of 448, cholesterol total 186, HDL of 32. Lipase was normal. IMAGING DATA: EKG was reviewed. He as a right bundle branch block. He has diffuse ST depression wi th elevation in AVR suggestive of multivessel disease or equivolent. ASSESSMENT AND PLAN: 1. Non-ST elevation myocardial infarction. 2. Hypertension. 3. Obesity. 4. History of cerebrovascular accident. PLAN: 1. Certainly his EKG as his symptoms, as well as his troponin elevation is suggestive of multivessel disease or left main disease. We had a long conversation about possibly doing a heart catheterizati on. He agrees to proceed with a heart catheterization. He does not wish to have bypass surgery. Th is was needed. I told him that most likely this is what I think will be required because of the echo cardiogram, which is being done at exact time that I am in his room and it looks like the LV is reduc ed, we will get a final result for this in a bit. Otherwise, after a long conversation with him and his , he said that he will rescind his DNR for the procedure and for the kolton and postoperative s alvarez, he will make a better decision about surgery once he knows what his anatomy looks like. 2. It also seems like his aortic valve going to be an issue if he needs surgical revascularization. He will most likely need an aortic valve as well. 3. Continue further recommendation results of coronary angiogram. Thank you for letting us to participate in the care of your patient. We will follow.
[2017-12-23] MEDS: Acetaminophen/Codeine 30-300mg Tablet PO PRN (17:26)
[2017-12-23] MEDS ORDERED: Polyethylene Glycol 3350 17 GM Packet PO SCH (19:45)
[2017-12-23 20:13] LABS: Hemoglobin 13.5 g/dL (14.0-18.0); Platelet Count 312 thou/uL (130-400)
[2017-12-23] MEDS ORDERED: Atorvastatin Calcium 40 MG TAB PO SCH (21:00)
[2017-12-24] MEDS: Nitroglycerin 0.4 MG TAB (25 Tab Bottle) SL PRN ×14 (03:32→22:48)
[2017-12-24] MEDS: Morphine 2 MG/ML SYRINGE SLOW IVP PRN ×20 (03:37→22:39)
[2017-12-24 04:43] LABS: #Basophils 0.1 thou/uL (0.0-0.2); #Eosinphils 0.3 thou/uL (0.0-0.7); #Monocytes 0.8 thou/uL (0.11-0.59); #Neutrophils 6.5 thou/uL (1.40-6.50); %Basophils 0.7 % (0.0-1.0); %Eosinophils 2.7 % (0.0-10.0); %Lymphocytes 20.3 % (21.0-51.0); %Monocytes 8.3 % (0.0-10.0); Mean Corpuscular HGB CONC 32.7 g/dL (32.0-36.0); Mean Corpuscular Hemoglobin 29.9 pg (27.0-31.0); Mean Corpuscular Volume 91.5 fL (78.0-98.0); Mean Platelet Volume 6.1 fL (7.4-10.4); Platelet Count 301 thou/uL (130-400); RBC Distribution Width 13.2 % (11.5-14.5); Red Blood Cell (RBC) Count 4.34 mill/uL (4.70-6.10); White Blood Cell (WBC) Count 9.6 thou/uL (4.8-10.8)
[2017-12-24 04:48] LABS: Hemoglobin A1c 6.8 % (4.0-6.0)
[2017-12-24 05:04] LABS: Anion Gap 13 mmol/L (10-20); BUN (Urea Nitrogen) 19 mg/dL (8.4-25.7); Calc. Creatinine Clearance 117 mL/min (70-130); Calcium 9.4 mg/dL (7.8-10.44); Carbon Dioxide 25 mmol/L (23-31); Chloride 101 mmol/L (98-107); Estimated GFR-MDRD 59; Glucose 139 mg/dL (80-115); Potassium 4.3 mmol/L (3.5-5.1); Sodium 135 mmol/L (136-145)
[2017-12-24] MEDS: Aggrastat 12.5 MG/250 ML 250 ML IVPB SCH ×2 (07:43→16:48)
[2017-12-24] MEDS ORDERED: Magnesium Citrate 300 ML BOT PO PRN (08:55)
--- NOTE | 2017-12-24 09:13 | PRG ---
DATE OF SERVICE: 12/24/2017 SUBJECTIVE: This morning, he is having back pain, chest pain. He underwent a cardiac catheterizatio n yesterday, which showed significant coronary artery disease. He is apparently not a surgical candidate. He said he want to go home with hospice. He had an echocardiogram done, which showed the EF was 35%. OBJECTIVE: VITAL SIGNS: Sats are 94% room air, blood pressure 118/76, respiration 21, temperature 99. CHEST: Decreased breath sounds, no wheezing. CARDIAC: Normal S1, S2. No gallops. ABDOMEN: Soft, no masses. IMPRESSION: Coronary artery disease, congestive heart failure, morbid obesity, probably sleep apnea, pain. PLAN: Disposition as per Cardiology and primary care physician. Home with Hospice as per the patient. Comfort care.
[2017-12-24] MEDS: Polyethylene Glycol 3350 17 GM Packet PO SCH (09:20)
[2017-12-24] MEDS: Rosuvastatin 20 MG TAB PO SCH (09:20)
[2017-12-24] MEDS: Fenofibrate Nanocrystallized 145 MG TAB PO SCH (09:20)
[2017-12-24] MEDS: Lisinopril 20 MG TAB PO SCH (09:20)
[2017-12-24] MEDS: Famotidine/PF 20 mg/2ml Vial SLOW IVP SCH ×2 (09:20→20:25)
[2017-12-24] MEDS: Triamterene/Hydrochlorothiazide 37.5 mg/25 mg Tablet PO SCH (09:21)
[2017-12-24] MEDS: Aspirin 325 MG TAB PO SCH (09:23)
--- NOTE | 2017-12-24 11:18 | DIS ---
PRIMARY CARE PHYSICIAN: Dr. Bouchra Perez DATE OF ADMISSION: 12/22/2017 DATE OF DISCHARGE: 12/24/2017 DISCHARGE DISPOSITION: Home with home hospice. PRIMARY DISCHARGE DIAGNOSES: 1. Acute non-ST elevation myocardial infarction. 2. Severe left main, left anterior descending and right coronary artery disease , ischemic cardiomyopathy with acute on chronic stage 3 systolic congestive heart failure. 3. Severe aortic stenosis. SECONDARY DISCHARGE DIAGNOSES: Morbid obesity with body mass index 42, hypertension, dyslipidemia, history of CVA, chronic constipation, chronic low back pain. PRIMARY PROCEDURE/OPERATION: Cardiac catheterization was performed by Dr. Jacob and found with severe left main disease, severe LAD disease and moderate RCA disease and recommended CABG and aortic valve replacement. Echocardiography showed EF 30-35%, diastolic dysfunction, severe aortic valve stenosis. SIGNIFICANT LABORATORY DATA: WBC 9.6, hemoglobin 13.0, platelets 301. INR 1.0. Sodium 135, potassium 4.3, BUN 19, creatinine 1.24, calcium 9.4. Troponin I 3.806, triglyceride 448, cholesterol 189, HDL 32. Hemoglobin A1c 6.8. DISCHARGE MEDICATIONS: Coreg 3.125 mg p.o. b.i.d., lisinopril 2.5 mg p.o. daily , MiraLax 17 grams p.o. daily, tramadol 100 mg q.i.d. p.r.n., Crestor 20 mg p.o. daily, TriCor 160 mg p.o. daily, Nexium 20 mg p.o. b.i.d., aspirin 325 mg p.o. daily. CONTRAINDICATIONS: None. CODE STATUS: DNR. INPATIENT CONSULTANTS: Dr. Jacob was consulted who did cardiac catheterization. Dr. Gaines was following because patient was admitted in [facility]. TEST RESULTS PENDING ON DISCHARGE: None. ALLERGIES: No known drug allergy. DISCHARGE PLAN: Post hospital, the patient will follow up with primary care physician, Dr. Bouchra Perez in 1 week. The patient is planned for discharge home with home hospice per patient request. HOSPITAL COURSE: The patient is a 62-year-old male with the above-mentioned medical problem who was admitted by Dr. yL. Please see her H&P for further detail. The patient presented to the ER with the complaint of chest pain. The patient was having chest pain, shoulder pain and back pain because of radicular pain. He had significantly abnormal troponin. He was diagnosed with non-ST elevation DE. He had abnormal EKG as well. Cardiology was consulted. Cardiology did cardiac catheterization. The patient was found with a left main , LAD and RCA disease. The patient was requiring CABG. Echocardiography was also obtained which showed a severe aortic stenosis and that is why patient was also requiring aortic valve replacement. Cardiology consulted Cardiovascular surgeon. The patient was planned for surgery, but patient declined to go for surgery and he does not want to go for any kind of surgical intervention. The patient decided to go home with home hospice. I have provided patient education about what is the meaning of hospice and I went all through his decision carefully in presence of patient's , but patient was in sound mind and he decided that he does not want to go for surgery even though that will endanger his life, but he understands the risk, but he does not want to go for bypass surgery or valve replacement, rather he wanted to be comfortable and he decided to go home with home hospice. While in hospital, he had constipation that was also taken care of with the magnesium citrate. At this point, the patient's blood pressure runs low and that is why we have to do necessary adjustment in his medication. This patient's prognosis is extremely poor as he is not going for any definitive treatment. We are consulting hospice team here for evaluation and if home hospice is arranged, then this patient is medically stable for discharge today. MYRNA
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
--- NOTE | 2017-12-24 13:09 | PDOC.CTH ---
Cardiology Progress Note - Subjective He had a long night to think about his situation with his and decided to do conservative therapy. he has SOB and chets pain with minimal exertion, he had SOB with walking to the bathroom. - Objective Vital Signs Temp Pulse Resp BP Pulse Ox 12/24/17 11:45 113 H 20 129/90 96 12/24/17 07:58 93 L 12/24/17 07:41 99.0 F 117 H 21 H 108/76 94 L 12/24/17 03:41 99.0 F 117 H 20 106/77 97 12/24/17 02:16 102 H 18 104/77 95 Weight 303 lb 12/23/17 12/24/17 12/25/17 06:59 06:59 06:59 Intake Total 2894 Output Total 1900 Balance 994 - Physical Examination General/Neuro: alert & oriented x3, NAD Neck: no JVD present Lungs: CTA, unlabored respirations Heart: RRR Abdomen: NT/ND Extremities: + edema B (trace) - Telemetry Telemetry Rhythm: NSR - Labs Result Diagrams: 12/24/17 04:15 12/24/17 04:15 Troponin/CKMB CK-MB (CK-2) 14.2 ng/mL (0-6.6) H* 12/22/17 17:22 Troponin I 3.806 ng/mL (< 0.028) H* 12/22/17 23:04 - Assessment/Plan 1. NSTEMI 2. New onset dilated CM EF at 30-35% 3. Moderate to severe likely severe given reduced CO. 4. Severe LM disease 95% stenosis with clot. PLAN: - He has decided against any more invasive interventions. - He would like to go home with medical therapy. - Hospice appropriate for pain control. - Will complete 48 hrs of IIbIIIa infusion and will switch to Plavix tomorrow. - Continue full dose aspirin - Needs PRN lasix for Edema and SOB - Already on LYLY and statin, will start very low dose BB. - May discharge home with hospice TOMORROW. - Follow up in the office in 1 month. - He is severely ill and would not be inexpected.
[2017-12-24] MEDS ORDERED: Clopidogrel Bisulfate 75 MG TAB PO SCH (13:15)
[2017-12-24] MEDS: HYDROcodone/Acetaminophen 5/325 mg Tablet PO PRN (13:27)
[2017-12-24] MEDS ORDERED: Fleet Enema 133 ML BOT FS PRN (14:31)
--- NOTE | 2017-12-24 15:00 | PDOC.PN ---
- Subjective Encounter Start Date: 12/24/17 Encounter Start Time: 10:00 pt decided that he does not want surgery to be done, he rather prefer to go home with hospice he still has pain - Objective Resuscitation Status: Resuscitation Status DNR:Do Not Resuscitate MAR Reviewed: Yes Vital Signs & Weight: Vital Signs (12 hours) Temp Pulse Resp BP Pulse Ox 12/24/17 11:45 113 H 20 129/90 96 12/24/17 07:58 93 L 12/24/17 07:41 99.0 F 117 H 21 H 108/76 94 L 12/24/17 03:41 99.0 F 117 H 20 106/77 97 Weight Weight 303 lb I&O: 12/23/17 12/24/17 12/25/17 06:59 06:59 06:59 Intake Total 2894 Output Total 1900 Balance 994 Result Diagrams: 12/24/17 04:15 12/24/17 04:15 Radiology Reviewed by me: Yes (echo reviewed) EKG Reviewed by me: Yes (nsr) Phys Exam - Physical Examination Constitutional: NAD HEENT: PERRLA, moist MMs, sclera anicteric Neck: no JVD, supple Respiratory: no wheezing, no rales, no rhonchi Cardiovascular: RRR, no rub SM+ Gastrointestinal: soft, non-tender, no distention, positive bowel sounds obesity+ Musculoskeletal: no edema, pulses present Neurological: non-focal, normal sensation, moves all 4 limbs Lymphatic: no nodes Psychiatric: normal affect, A&O x 3 Skin: no rash, normal turgor Dx/Plan (1) NSTEMI (non-ST elevated myocardial infarction) Code(s): I21.4 - NON-ST ELEVATION (NSTEMI) MYOCARDIAL INFARCTION Status: Acute (2) Morbid obesity with BMI of 40.0-44.9, adult Code(s): E66.01 - MORBID (SEVERE) OBESITY DUE TO EXCESS CALORIES; Z68.41 - BODY MASS INDEX (BMI) 40.0-44.9, ADULT Status: Acute (3) Hyperlipidemia Code(s): E78.5 - HYPERLIPIDEMIA, UNSPECIFIED Status: Chronic (4) Hypertension Code(s): I10 - ESSENTIAL (PRIMARY) HYPERTENSION Status: Chronic - Plan cont current plan of care, plan discussed w/ family * continue integrillin * change to plavix tomorow * will keep today in hospital * will start hospice arrangement * medication reviewed as below * symptomatic treatment * treat constipation with enema today * will discharge tomorrow. Review of Systems - Review of Systems Eyes: negative: Pain, Vision Change, Conjunctivae Inflammation, Eyelid Inflammation, Redness, Other ENT: negative: Ear Pain, Ear Discharge, Nose Pain, Nose Discharge, Nose Congestion, Mouth Pain, Mouth Swelling, Throat Pain, Throat Swelling, Other Respiratory: negative: Cough, Dry, Shortness of Breath, Hemoptysis, SOB with Excertion, Pleuritic Pain, Sputum, Wheezing Cardiovascular: chest pain Gastrointestinal: negative: Nausea, Vomiting, Abdominal Pain, Diarrhea, Constipation, Melena, Hematochezia, Other Genitourinary: negative: Dysuria, Frequency, Incontinence, Hematuria, Retention , Other Musculoskeletal: negative: Neck Pain, Shoulder Pain, Arm Pain, Back Pain, Hand Pain, Leg Pain, Foot Pain, Other - Medications/Allergies Allergies/Adverse Reactions: Allergies Allergy/AdvReac Type Severity Reaction Status Date / Time No Known Allergies Allergy Verified 12/22/17 22:01 Medications: Current Medications Acetaminophen (Tylenol) 650 mg PO Q4H PRN PRN Reason: Headache/Fever/Mild Pain (1-3) Last Admin: 12/24/17 06:02 Dose: 650 mg Acetaminophen (Tylenol) 500 mg PO Q6H PRN PRN Reason: Mild Pain (1-3) Acetaminophen/Codeine Phosphate (Tylenol #3) 1 tab PO Q4H PRN PRN Reason: Mild Pain (1-3) Last Admin: 12/23/17 17:26 Dose: 1 tab Hydrocodone Bitart/Acetaminophen ([place] 5/325) 1 tab PO Q4H PRN PRN Reason: Moderate Pain (4-6) Last Admin: 12/24/17 13:27 Dose: 1 tab Artificial Tears (Tears Renewed 15ml Bottle) 2 drop EA EYE PRN PRN PRN Reason: Dry Eyes Aspirin (Aspirin) 325 mg PO DAILY [facility] Last Admin: 12/24/17 09:23 Dose: 325 mg Bisacodyl (Dulcolax) 10 mg PO DAILYPRN PRN PRN Reason: Constipation Calcium Carbonate (Tums) 1,000 mg PO Q4H PRN PRN Reason: Heartburn or Indigestion Last Admin: 12/24/17 13:15 Dose: 1,000 mg Clonidine (Catapres) 0.1 mg PO Q4H PRN PRN Reason: SBP > ____ Clopidogrel Bisulfate (Plavix) 75 mg PO DAILY [facility] Famotidine (Pepcid) 20 mg SLOW IVP Q12HR [facility] Last Admin: 12/24/17 09:20 Dose: Not Given Fenofibrate (Tricor) 145 mg PO DAILY [facility] Last Admin: 12/24/17 09:20 Dose: Not Given Guaifenesin (Robitussin Sf) 200 mg PO Q4H PRN PRN Reason: Cough Hydralazine HCl (Apresoline) 10 mg SLOW IVP Q4H PRN PRN Reason: SBP > 180 and HR < 70 Tirofiban/Sodium Chloride (Aggrastat 12.5 Mg/250 Ml) 250 mls @ 0 mls/hr IVPB INF [facility]; Protocol Stop: 12/25/17 08:00 Last Admin: 12/24/17 07:43 Dose: 250 mls Lisinopril (Zestril) 20 mg PO DAILY [facility] Last Admin: 12/24/17 09:20 Dose: Not Given Loperamide HCl (Imodium) 2 mg PO PRN PRN PRN Reason: Diarrhea/Loose Stools Loratadine (Claritin) 10 mg PO DAILYPRN PRN PRN Reason: Sinus Symptoms Magnesium Citrate (Citrate Of Magnesia 300 Ml Bot) 300 ml PO DAILYPRN PRN PRN Reason: CONSTIPATION Last Admin: 12/24/17 09:12 Dose: 300 ml Metoprolol Succinate (Toprol Xl) 12.5 mg PO DAILY [facility] Mineral Oil/White Petrolatum (Eucerin Cream) 0 gm TOP BIDPRN PRN PRN Reason: Dry Skin Morphine Sulfate (Morphine) 2 mg SLOW IVP Q5MIN PRN PRN Reason: Chest Pain Last Admin: 12/24/17 14:10 Dose: 2 mg Nitroglycerin (Nitrostat) 0.4 mg SL Q5MIN PRN PRN Reason: Chest Pain Last Admin: 12/24/17 08:01 Dose: 0.4 mg Ondansetron HCl (Zofran) 4 mg IVP Q6H PRN PRN Reason: Nausea/Vomiting Ondansetron HCl (Zofran Odt) 4 mg PO Q6H PRN PRN Reason: Nausea/Vomiting Ondansetron HCl (Zofran) 4 mg IVP Q6H PRN PRN Reason: Nausea/Vomiting Polyethylene Glycol (Miralax) 17 gm PO DAILY [facility] Last Admin: 12/24/17 09:20 Dose: Not Given Rosuvastatin Calcium (Crestor) 20 mg PO DAILY [facility] Last Admin: 12/24/17 09:20 Dose: Not Given Senna/Docusate Sodium (Senokot S) 2 tab PO BID PRN PRN Reason: Constipation Last Admin: 12/23/17 20:21 Dose: 2 tab Sodium Biphosphate/Sodium Phosphate (Fleet Enema) 133 ml FS PRN PRN PRN Reason: CONSTIPATION Sodium Chloride ([place] Nasal [place] 0.65%) 0 ml EA NARE QIDPRN PRN PRN Reason: Nasal Congestion Tramadol HCl (Ultram) 100 mg PO QIDPRN PRN PRN Reason: Moderate to Severe Pain (4-10) Triamterene/HCTZ (Maxzide-25) 1 tab PO DAILY [facility] Last Admin: 12/24/17 09:21 Dose: Not Given Zolpidem Tartrate (Ambien) 5 mg PO HSPRN PRN PRN Reason: Insomnia
[2017-12-24] MEDS: Acetaminophen/Codeine 30-300mg Tablet PO PRN (20:24)
[2017-12-25] MEDS: Acetaminophen/Codeine 30-300mg Tablet PO PRN (01:10)
[2017-12-25 03:58] LABS: #Basophils 0.1 thou/uL (0.0-0.2); #Eosinphils 0.1 thou/uL (0.0-0.7); #Lymphocytes 1.5 thou/uL (1.20-3.40); #Monocytes 1.1 thou/uL (0.11-0.59); #Neutrophils 9.6 thou/uL (1.40-6.50); %Basophils 0.4 % (0.0-1.0); %Eosinophils 0.5 % (0.0-10.0); %Lymphocytes 12.3 % (21.0-51.0); %Monocytes 8.9 % (0.0-10.0); Hemoglobin 13.1 g/dL (14.0-18.0); Mean Corpuscular HGB CONC 32.9 g/dL (32.0-36.0); Mean Corpuscular Hemoglobin 29.9 pg (27.0-31.0); Mean Platelet Volume 6.1 fL (7.4-10.4); Platelet Count 294 thou/uL (130-400); RBC Distribution Width 13.1 % (11.5-14.5); Red Blood Cell (RBC) Count 4.39 mill/uL (4.70-6.10); White Blood Cell (WBC) Count 12.3 thou/uL (4.8-10.8)
[2017-12-25] MEDS: Aggrastat 12.5 MG/250 ML 250 ML IVPB SCH (04:37)
[2017-12-25] MEDS: Morphine 2 MG/ML SYRINGE SLOW IVP PRN ×2 (06:05→10:56)
[2017-12-25] MEDS ORDERED: HumaLOG 300 UNITS/3 ML VIAL SC PRN ×2 (06:40)
[2017-12-25] MEDS ORDERED: Dextrose 50% Abboject 50 ML SYRINGE SLOW IVP PRN (06:40)
[2017-12-25] MEDS ORDERED: Dextrose 5% in Water 1,000 ML IV PRN (06:40)
[2017-12-25] MEDS: Lisinopril 20 MG TAB PO SCH (07:56)
[2017-12-25] MEDS: HYDROcodone/Acetaminophen 5/325 mg Tablet PO PRN (07:57)
[2017-12-25] MEDS ORDERED: metFORMIN 500 MG TAB PO SCH (08:00)
[2017-12-25] MEDS: Nitroglycerin 0.4 MG TAB (25 Tab Bottle) SL PRN (08:37)
[2017-12-25] MEDS: Rosuvastatin 20 MG TAB PO SCH (08:39)
[2017-12-25] MEDS: Famotidine/PF 20 mg/2ml Vial SLOW IVP SCH (08:39)
[2017-12-25] MEDS: Aspirin 325 MG TAB PO SCH (08:40)
[2017-12-25] MEDS: Triamterene/Hydrochlorothiazide 37.5 mg/25 mg Tablet PO SCH (08:40)
[2017-12-25] MEDS: Fenofibrate Nanocrystallized 145 MG TAB PO SCH (08:40)
[2017-12-25] MEDS: Polyethylene Glycol 3350 17 GM Packet PO SCH (08:43)
[2017-12-25] MEDS ORDERED: Clopidogrel Bisulfate 75 MG TAB PO SCH (09:00)
[2017-12-25 11:00] VITALS: BP 103/78; TEMP 98.6
--- NOTE | 2017-12-25 11:41 | PDOC.PN ---
- Subjective Encounter Start Date: 12/25/17 Encounter Start Time: 10:15 Patient seen and examined. No overnight events - Objective Resuscitation Status: Resuscitation Status DNR:Do Not Resuscitate MAR Reviewed: Yes Vital Signs & Weight: Vital Signs (12 hours) Temp Pulse Resp BP Pulse Ox 12/25/17 10:59 98.6 F 118 H 22 H 103/78 90 L 12/25/17 08:37 126 H 113/88 93 L 12/25/17 07:29 100.4 F H 123 H 22 H 101/61 92 L 12/25/17 07:23 93 L 12/25/17 04:03 99.9 F H 126 H 22 H 140/93 H 96 12/25/17 00:03 98.8 F 128 H 26 H 140/93 H 94 L Weight Weight 303 lb I&O: 12/24/17 12/25/17 12/26/17 06:59 06:59 06:59 Intake Total 2894 2743 Output Total 1900 850 Balance 994 1893 Result Diagrams: 12/25/17 03:43 12/24/17 04:15 EKG Reviewed by me: Yes Phys Exam - Physical Examination Constitutional: NAD HEENT: PERRLA, moist MMs, sclera anicteric Neck: no JVD, supple Respiratory: no wheezing, no rales, no rhonchi Cardiovascular: RRR, no significant murmur, no rub Gastrointestinal: soft, non-tender, no distention, positive bowel sounds Musculoskeletal: no edema, pulses present Neurological: non-focal Psychiatric: normal affect, A&O x 3 Skin: no rash, normal turgor Dx/Plan (1) NSTEMI (non-ST elevated myocardial infarction) Code(s): I21.4 - NON-ST ELEVATION (NSTEMI) MYOCARDIAL INFARCTION Status: Acute (2) Morbid obesity with BMI of 40.0-44.9, adult Code(s): E66.01 - MORBID (SEVERE) OBESITY DUE TO EXCESS CALORIES; Z68.41 - BODY MASS INDEX (BMI) 40.0-44.9, ADULT Status: Acute (3) Hyperlipidemia Code(s): E78.5 - HYPERLIPIDEMIA, UNSPECIFIED Status: Chronic (4) Hypertension Code(s): I10 - ESSENTIAL (PRIMARY) HYPERTENSION Status: Chronic (5) ACC/AHA stage C congestive heart failure due to ischemic cardiomyopathy Code(s): I50.9 - HEART FAILURE, UNSPECIFIED; I25.5 - ISCHEMIC CARDIOMYOPATHY Status: Acute (6) Multi-vessel coronary artery stenosis Code(s): I25.10 - ATHSCL HEART DISEASE OF [place] CORONARY ARTERY W/O ANG PCTRS Status: Acute (7) Severe aortic stenosis Code(s): I35.0 - NONRHEUMATIC AORTIC (VALVE) STENOSIS Status: Acute (8) Diabetes type 2, controlled Code(s): E11.9 - TYPE 2 DIABETES MELLITUS WITHOUT COMPLICATIONS Status: Chronic (9) H/O: CVA (cerebrovascular accident) Code(s): Z86.73 - PRSNL HX OF TIA (TIA), AND CEREB INFRC W/O RESID DEFICITS Status: Chronic - Plan cont current plan of care, plan discussed w/ family * medication reviewed as below * symptomatic treatment * see discharge summery. Review of Systems - Review of Systems Constitutional: fever, weakness. negative: chills, sweats, malaise, other Respiratory: Shortness of Breath, SOB with Excertion. negative: Cough, Dry, Hemoptysis, Pleuritic Pain, Sputum, Wheezing Cardiovascular: negative: chest pain, palpitations, orthopnea, paroxysmal nocturnal dyspnea, edema, light headedness, other Gastrointestinal: negative: Nausea, Vomiting, Abdominal Pain, Diarrhea, Constipation, Melena, Hematochezia, Other Genitourinary: negative: Dysuria, Frequency, Incontinence, Hematuria, Retention , Other Musculoskeletal: negative: Neck Pain, Shoulder Pain, Arm Pain, Back Pain, Hand Pain, Leg Pain, Foot Pain, Other - Medications/Allergies Allergies/Adverse Reactions: Allergies Allergy/AdvReac Type Severity Reaction Status Date / Time No Known Allergies Allergy Verified 12/22/17 22:01
--- NOTE | 2017-12-27 10:17 | ADD-DIS ---
ADDENDUM Please see my discharge summary dictated yesterday for more detail. HOSPITAL COURSE: This patient was evaluated by Cardiology group and Cardiology wanted to continue __ ____ drip for 24 hours and they recommended to discharge him today. Today, they started Plavix and o n discharge we changed his medication, Coreg to Toprol-XL 25 mg p.o. daily. His blood pressure is st ill running on lower side and that is why he is tolerating above-mentioned medication. Today, he is febrile and tachycardic. He is still not doing good, but still the patient decided to go home with [facility]. He accepted that he does not want to go for any kind of surgery for his 3-vessel diseas e. He is sound minded and he is making his own decision in front of his , who also agree. Hospi ce team has been arranged all equipment to his home. We are also adding metformin 500 mg p.o. b.i.d. for his new onset diabetes. Please see my progress note from today for further detail.
== END 2017-12-25 11:19 | disposition hospice, home (50) | DRG 280 ==
LOC: ERS 16:18 → IMCU/EMU 18:33
PROVIDERS: ADMIT Internal Medicine; ATTEND Internal Medicine
PROC: 4A023N7 Measurement of Cardiac Sampling and Pressure, Left Heart, Percutaneous Approach (ICD-10-PCS; principal; 2017-12-23)
PROC: B2111ZZ Fluoroscopy of Multiple Coronary Arteries using Low Osmolar Contrast (ICD-10-PCS; 2017-12-23)
DX: I21.4 Non-ST elevation (NSTEMI) myocardial infarction (principal); I50.23 Acute on chronic systolic (congestive) heart failure; Z68.41 Body mass index [BMI] 40.0-44.9, adult; I69.354 Hemiplegia and hemiparesis following cerebral infarction affecting left non-dominant side; I42.0 Dilated cardiomyopathy; Z66 Do not resuscitate; E66.01 Morbid (severe) obesity due to excess calories; I25.5 Ischemic cardiomyopathy; I25.10 Atherosclerotic heart disease of native coronary artery without angina pectoris; I35.0 Nonrheumatic aortic (valve) stenosis; E11.9 Type 2 diabetes mellitus without complications; E78.5 Hyperlipidemia, unspecified; Z91.81 History of falling; I69.398 Other sequelae of cerebral infarction; I11.0 Hypertensive heart disease with heart failure; K59.09 Other constipation; G89.29 Other chronic pain; M54.5 Low back pain; G47.30 Sleep apnea, unspecified
CPT/HCPCS: 36415; 71045; 80048; 80053; 80061; 82553; 83036; 83690; 83880; 84484; 85025; 85610; 85730; 93005; 93010; 93306; 93458; 96360; 96372; 99152; C1769; J1644; J1650; J2001; J2250; J2270; J2405; J3010; J3246; Q0162; S0028